=== PATIENT | female | born 1965 | race Caucasian/White ===

== ENCOUNTER → 2018-06-18 13:42 | Outpatient (CLI) | payer BC, SELFPAY ==
--- NOTE | 2018-06-18 13:46 | CT_ITS ---
STUDY: CT ABDOMEN AND PELVIS WITHOUT CONTRAST REASON FOR EXAM: Female, 52 years old. A material right flank pain RADIATION DOSAGE (If Supplied By Facility): CTDIvol = ( 23.53 ) mGy, DLP = ( 3230.56 ) mGycm TECHNIQUE: Transaxial images were obtained from the dome of the diaphragm to the symphysis pubis without oral contrast, and without intravenous contrast. Sagittal and coronal images were reconstructed. Individualized dose optimization techniques were used for this CT. COMPARISON: None. FINDINGS: The visualized lung bases are unremarkable. The visualized portions of the heart are within normal limits. There is decreased attenuation of the liver consistent with steatosis. Normal gallbladder and extrahepatic biliary system. Normal spleen. Normal pancreas. Normal bilateral adrenal glands. There is been either prior infarction or resection of a portion of the lateral aspect of the right kidney. There are multiple focal areas of cortical loss. This may be from prior infection or infarction. There is a small exophytic cystic structure measuring 6 mm per there is a well-circumscribed cystic mass in the left kidney measuring 1.9 x 2.5 cm with Hounsfield units in the range of simple fluid. Normal visualized stomach. Normal small intestine. There is mild to moderate stool in the colon. There is diverticulosis without visualized diverticulitis. There is non-visualization of the appendix. The aorta is partially calcified. Normal inferior vena cava. Normal retroperitoneum. Normal urinary bladder. There is absence of the uterus consistent with a prior hysterectomy. The visualized abdominal wall varices. There is a small fatty umbilical hernia. There is multilevel spondylosis. There are Schmorl's nodes at the level of L1. And at the level of L4. There is some central loss of height. At L3-L4 L4-L5 there is disc space narrowing facet arthropathy. At L5-S1 there is vacuum phenomenon. CT/CT Abd/Pelvis W/WO Contrast IMPRESSION: Mild to moderate constipation. Chronic appearing right renal cortical thinning likely associated with history of infection or infarction. No current inflammation or edema is demonstrated or hydronephrosis. Benign-appearing exophytic right renal cyst.. Benign appearing left renal cyst. Status post hysterectomy. Minimal diverticulosis no evidence of diverticulitis. Nonvisualization of the appendix. Electronically Signed: Zoya Rendon MD at 15:17 EDT Tel , Service support ,
== END ==
PROVIDERS: Family Provider Family Medicine; PCP Family Medicine; Visit Provider Urology
DX: N20.0 Calculus of kidney (principal); K59.00 Constipation, unspecified; Z90.710 Acquired absence of both cervix and uterus
CPT/HCPCS: 74178; Q9967